=== PATIENT | female | born 1965 | race Caucasian/White ===

== ENCOUNTER 2016-08-18 13:57 | Day surgery (SDC) | payer BC, OTHER ==
[2016-08-12 15:22] LABS: BASOPHILS 0.3 %; BASOPHILS ABSOLUTE 0.03 10/3/uL (0.0-0.16); EOSINOPHILS 2.6 %; EOSINOPHILS ABSOLUTE 0.26 10/3/uL (0.0-0.53); HEMOGLOBIN 11.3 g/dL (12.0-16.0); IMMATURE GRANULOCYTES 0.5 %; IMMATURE GRANULOCYTES ABSOLUTE 0.05 10/3/uL (0.0-0.11); LYMPHOCYTES 24.2 %; LYMPHOCYTES ABSOLUTE 2.44 10/3/uL (0.67-4.30); MEAN CORPUS HGB CONC 32.6 g/dL (32.0-36.0); MEAN CORPUSCULAR HEMOGLOB 25.8 pg (26.0-34.0); MEAN PLATELET VOLUME 9.3 fL (9.2-13.0); MONOCYTES 9.3 %; MONOCYTES ABSOLUTE 0.94 10/3/uL (0.21-1.20); NEUTROPHILS 63.1 %; NEUTROPHILS ABSOLUTE 6.38 10/3/uL (2.02-8.40); PLATELET COUNT 320 10/3/uL (150-400); RBC DISTRIBUTION WIDTH 13.2 % (12.0-16.0); RED CELL COUNT 4.38 10/6/uL (4.0-5.6)
[2016-08-12 15:27] LABS: HEMATOCRIT 34.7 % (36.0-48.0); MANUAL DIFF NO %; MEAN CORPUSCULAR VOLUME 79.2 fL (80-100); WHITE BLOOD CELLS 10.1 10/3/uL (4.5-10.5)
[2016-08-12 15:38] LABS: BUN (BLOOD UREA NITROGEN) 12 MG/DL (6-23); CALCIUM, SERUM 8.6 MG/DL (8.5-10.4); CHLORIDE, SERUM 107 MMOL/L (96-112); CO2 (CARBON DIOXIDE) 28 MMOL/L (24-34); CREATININE 0.94 MG/DL (0.55-1.02); GFR AFRICAN AMERICAN 82 ML/MIN (>=60); GFR NON AFRICAN AMERICAN 71 ML/MIN (>=60); GLUCOSE, SERUM 114 MG/DL (60-99); POTASSIUM, SERUM 3.9 MMOL/L (3.5-5.3); SODIUM, SERUM 142 MMOL/L (135-148)
--- NOTE | ~2016-08-18 | OP ---
Record Of Operation [facility] [address] [place]. [address] NAME: RENEA JOHNSON : 65 STATUS : [facility]#: [id number] AGE: 50 ADM/REG DATE : 08/18/16 MR#: [id number] REPORT SERV DATE: 08/18/16 DICTATED BY: EBEN LIU DATE: 08/18/16 REPORT STATUS : Draft TRANSCRIBED BY: MODL DATE: 08/18/16 DATE OF PROCEDURE: 08/18/2016 SURGEON: Eben Liu M.D. ANESTHESIA: Local with IV sedation. PREOPERATIVE DIAGNOSIS: Need for intravenous access for chemotherapy administration. POSTOPERATIVE DIAGNOSIS: Need for intravenous access for chemotherapy administration. PROCEDURES: 1. Placement of left subclavian vein Port-A-Cath. 2. Intraoperative fluoroscopy. HISTORY: The patient is a 50-year-old white female, who recently presented with a palpable mass in her left lower breast, thought several months ago to represent hematoma. 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 This was minimally ER positive, [place] negative, and HER2/marino negative. Ki-67 is elevated at 60% to 70%. She additionally had a satellite nodule within the skin at the 6 o'clock position, which was also biopsied and showed similar histology. Additionally, she has fairly marked edema of her right lower breast and retraction of the nipple. This is felt to be a locally advanced cancer due to the overlying skin changes and nipple retraction as well as satellite lesion formation. Therefore, neoadjuvant chemotherapy was discussed and was recommended. She anticipates starting chemotherapy tomorrow, and thus comes in today for Port-A-Cath placement. The procedure has been reviewed with her in detail and she agrees to proceed in this fashion today. NARRATIVE SUMMARY: After satisfactory intravenous sedation, the patient was placed supine with both arms tucked at her sides. Bilateral neck and infraclavicular areas were then prepped and draped in the usual fashion. The patient was placed in Trendelenburg position. Time-out was called to verify the identity of the patient, review allergies, verify appropriate administration of antibiotics, and verify the appropriate procedure as being Port-A-Cath placement. 1% xylocaine was used to infiltrate the skin and subcutaneous tissue of the lateral infraclavicular area on the left. The left subclavian vein was punctured percutaneously on the first attempt with good venous return. A Seldinger wire was passed through the needle and into the right heart under fluoroscopic guidance. The introducer needle was removed and the puncture site was enlarged. A combined dilator introducer sheath was passed over the wire and into the left subclavian vein. The dilator and wire were removed with good venous Record Of Operation [address] [place]. [address] NAME: RENEA JOHNSON : 65 STATUS : [facility] PAT#: [id number] AGE: 50 ADM/REG DATE : 08/18/16 MR#: [id number] REPORT SERV DATE: 08/18/16 DICTATED BY: EBEN LIU DATE: 08/18/16 REPORT STATUS : Draft TRANSCRIBED BY: CRUZ DATE: 08/18/16 return through the introducer sheath. An 8-Arabic polyurethane PowerPort-type catheter was placed through the sheath and its tip positioned in the right heart. The tear-away sheath was removed. The patient was then placed in reverse Trendelenburg position. Further local anesthesia with 1% xylocaine was applied to the left infraclavicular fossa. A transverse incision was made inferior to the catheter exit site and a subcutaneous pocket developed inferiorly to accommodate the size of the port. A tunnel was made superiorly from the pocket and the end of the catheter brought within the pocket. Fluoroscopy was used to position the catheter tip at the cavoatrial junction. The catheter was then trimmed to an appropriate length and appropriate attachments made to the port. The port was placed within the subcutaneous pocket and secured using a single 2-0 Vicryl suture. Final check with fluoroscopy revealed appropriate catheter placement. The incision was closed in layers using 2-0 Vicryl interrupted subcutaneous suture and 4-0 Monocryl running subcuticular closure for skin. Steri-Strips were applied. The port was accessed percutaneously using a right angle Toney needle. There was good venous return through the tubing and the entire system was flushed with heparinized saline. The access needle was secured with gauze held in place by Tegaderm dressings. The patient was transported to phase 2 recovery, where chest x-ray is pending at the time of dictation. Estimated blood loss was minimal. Sponge, instrument, and needle counts were all correct. There were no complications noted. LW/MODL Eben Liu M.D. / [id number] CC: Haresh Siddiqui MD
[~2016-08-18 13:57] MED LIST: NEXIUM40 PO; WELLXL300 PO; Z-PAK PO
== END 2016-08-18 18:38 | disposition home or self-care (01) ==
LOC: SDC 13:57
PROVIDERS: Surgery
PROC: 05H633Z Insertion of Infusion Device into Left Subclavian Vein, Percutaneous Approach (ICD-10-PCS; 2016-08-18)
PROC: B517YZA Fluoroscopy of Left Subclavian Vein using Other Contrast, Guidance (ICD-10-PCS; 2016-08-18)
PROC: 0JH60XZ Insertion of Tunneled Vascular Access Device into Chest Subcutaneous Tissue and Fascia, Open Approach (ICD-10-PCS; principal; 2016-08-18 15:30)
DX: C50.911 Malignant neoplasm of unspecified site of right female breast (principal); F41.9 Anxiety disorder, unspecified; F32.9 Major depressive disorder, single episode, unspecified; K21.9 Gastro-esophageal reflux disease without esophagitis; Z88.2 Allergy status to sulfonamides; Z87.891 Personal history of nicotine dependence; Z79.2 Long term (current) use of antibiotics; Z79.899 Other long term (current) drug therapy; Z90.89 Acquired absence of other organs; Z90.710 Acquired absence of both cervix and uterus
CPT/HCPCS: 71010; 77001; 80048; 85025; 93005; A9270-GY; C1751; J0690; J2250; J2405; J3010